=== PATIENT | female | born 1950 | race Caucasian/White ===

== ENCOUNTER 2022-08-11 07:23 | Outpatient (CLI) | payer MEDICARE, SELFPAY | END 2022-08-11 07:24 | disposition home or self-care (01) | LOC: AMB 08-15 09:30 | PROVIDERS: PCP Family Medicine; Visit Provider Family Medicine | DX: R06.09 Other forms of dyspnea (principal); R07.89 Other chest pain | CPT/HCPCS: A0425; A0427 ==

== ENCOUNTER 2022-10-08 09:36 | Outpatient (CLI) | payer MEDICARE, SELFPAY | END 2022-10-08 09:37 | disposition home or self-care (01) | LOC: AMB 10-09 03:00 | PROVIDERS: PCP Family Medicine; Visit Provider Family Medicine | DX: I49.9 Cardiac arrhythmia, unspecified (principal) | CPT/HCPCS: A0425; A0427 ==

== ENCOUNTER 2024-05-21 09:19 | Outpatient (CLI) | payer MEDICARE, OTHER, SELFPAY | END 2024-05-21 09:20 | disposition home or self-care (01) | PROVIDERS: PCP Family Medicine; Visit Provider Family Medicine | DX: E78.2 Mixed hyperlipidemia (principal); I10 Essential (primary) hypertension; R63.4 Abnormal weight loss; Z13.29 Encounter for screening for other suspected endocrine disorder; Z13.21 Encounter for screening for nutritional disorder | CPT/HCPCS: 80053; 80061; 82607; 84439; 84443 ==

== ENCOUNTER 2024-09-02 05:43 | Outpatient (CLI) | payer MEDICARE, OTHER, SELFPAY | END 2024-09-02 05:44 | disposition home or self-care (01) | PROVIDERS: PCP Family Medicine; Visit Provider Family Medicine | DX: S89.92XA Unspecified injury of left lower leg, initial encounter (principal); W01.0XXA Fall on same level from slipping, tripping and stumbling without subsequent striking against object, initial encounter; Y92.009 Unspecified place in unspecified non-institutional (private) residence as the place of occurrence of the external cause | CPT/HCPCS: A0425; A0427 ==

== ENCOUNTER 2025-07-01 09:35 | Outpatient (CLI) | payer MEDICARE, OTHER, SELFPAY | END 2025-07-01 09:36 | disposition home or self-care (01) | PROVIDERS: PCP Family Medicine; Visit Provider Family Medicine | DX: C34.2 Malignant neoplasm of middle lobe, bronchus or lung (principal); I10 Essential (primary) hypertension | CPT/HCPCS: 80053; 84443 ==